=== PATIENT | male | born 1960 | race Caucasian/White ===

== ENCOUNTER → 2016-05-02 | Outpatient (CLI) | payer OTHER ==
[~2016-05-02] MED LIST: IOPAMIDOL (ISOVUE-300) 100 ML BTL IV ONE
--- NOTE | 2016-05-02 17:17 | CT ---
CT Scan of the Abdomen and Pelvis (With Contrast) 1057 hours History: Lesion and terminal ileum seen on colonoscopy recently performed March 30, 2016. (D 37. 2). The patient has been experiencing diarrhea and chronic loose stool. Technique: Axial computed tomographic images of the abdomen and pelvis were obtained with the unevent ful intravenous administration of 85 mL Isovue-300 contrast. Volumen hypodense oral contrast was also administered. Images were reviewed in multiple planes. Dose reduction techniques were utilized. CT Abdomen and Pelvis Findings: Lung bases: Normal. Liver: Normal. Spleen: Normal. Gallbladder and Bile Ducts: Normal. Pancreas: Normal. Adrenals: Normal. Kidneys: No obstruction or solid masses. There are 2 small less than 5 mm presumed cyst in the midpor tion of the right kidney. Abdominal Aorta: No aneurysm. Pelvic structures: Normal Bladder: Normal. Appendix: Normal. Bowel Loops: Along the posterior aspect distal ileum near the ileocecal valve there is a small fat d ensity that measures about 8 x 5 x 5 mm it could represent a small intramural lipoma. There are scatt ered uncomplicated diverticula of the sigmoid colon without diverticulitis. Bowel loops are normal in caliber. No bowel obstruction, ascites, or significant retroperitoneal lymphadenopathy. Skeletal system: Vertebral body heights are well-maintained. There are no significant lytic or scler otic osseous lesions. Incidental Schmorl's nodes are present along the superior endplate of L1 and L2 segments. Impression: 1. Incidental tiny subcentimeter fat density presumed lipoma along the posterior aspect of the distal ileum. No significant small bowel mass is identified. 2. No CT evidence of appendicitis, abscess or bowel obstruction. 3. Incidental tiny cysts associated with the right kidney. 4. Uncomplicated diverticula of the sigmoid colon.
== END ==
LOC: FIMAGING 04-27 10:25
PROVIDERS: ATTEND Internal Medicine Gastroenterology
DX: R93.3 Abnormal findings on diagnostic imaging of other parts of digestive tract (principal); N28.1 Cyst of kidney, acquired; K57.32 Diverticulitis of large intestine without perforation or abscess without bleeding; M51.46 Schmorl's nodes, lumbar region
CPT/HCPCS: Q9967